=== PATIENT | male | born 1955 | race African-American/Black ===

== ENCOUNTER 2022-08-14 10:25 | Inpatient (IN) | payer OTHER, MEDICAID ==
[2022-08-14 11:42] LABS: #Eosinphils 0.1 10x3/uL (0.0-0.5); #Monocytes 0.3 10x3/uL (0.0-1.1); #Neutrophils 2.4 10x3/uL (1.5-8.4); %Basophils 0.5 % (0.0-2.0); %Eosinophils 2.3 % (0.0-6.0); %Lymphocytes 34.9 % (18.0-47.0); %Monocytes 7.3 % (0.0-10.0); %Neutrophils 54.8 % (40.0-75.0); Hemoglobin 14.4 g/dL (13.5-17.5); Mean Corpuscular HGB CONC 35.5 g/dL (32.0-36.0); Mean Corpuscular Volume 95.8 fl (81.2-95.1); Mean Platelet Volume 11.8 fl (7.4-10.4); Platelet Count 251 10x3/uL (150-450); RBC Distribution Width 12.3 % (11.5-14.5); Red Blood Cell (RBC) Count 4.24 10x6/uL (4.32-5.72); White Blood Cell (WBC) Count 4.4 10x3/uL (3.5-10.5)
[2022-08-14 11:57] LABS: ALT (SGPT) 76 U/L (8-55); AST (SGOT) 72 U/L (5-34); Albumin 4.8 g/dL (3.4-4.8); Alkaline Phosphatase 103 U/L (40-110); Anion Gap 18 mmol/L (10-20); BUN (Urea Nitrogen) 30 mg/dL (8.4-25.7); Bilirubin, Total 0.7 mg/dL (0.2-1.2); Calc. Creatinine Clearance 0 mL/min (70-130); Carbon Dioxide 21 mmol/L (23-31); Chloride 94 mmol/L (98-107); Estimated GFR 32; Globulin 4.1 g/dL (2.4-3.5); Potassium 5.7 mmol/L (3.5-5.1); Protein, Total 8.9 g/dL (5.8-8.1); Sodium 127 mmol/L (136-145)
[2022-08-14 12:09] LABS: Glucose 576 mg/dL (80-115)
[2022-08-14 13:24] LABS: Actual Bicarbonate (HCO3v) 25 mEq/L (22-28); Base Excess -0.5 mEq/L (-2.0 to +3.0); Calcium, Ionized (venous) 1.14 mmol/L (1.16-1.32); Chloride (VBG) 98 mmol/L (98-106); Hemoglobin (Hb) 14.5 g/dL (12.6-17.4); Potassium (VBG) 5.79 mmol/L (3.70-5.30); Puncture Site Other Site; RapidComm Collect By CBN; Sodium 131.3 mmol/L (133-146); pH (venous) 7.36 (7.32-7.43)
[2022-08-14] MEDS ORDERED: Insulin Regular 300 UNITS/3 ML VIAL ONE (13:48)
[2022-08-14] MEDS ORDERED: Guaifenesin DM 100-10/5 ML UDCUP PO PRN (13:59)
[2022-08-14] MEDS ORDERED: Senokot S 8.6-50 MG TAB PO PRN (13:59)
[2022-08-14] MEDS ORDERED: Ondansetron PF 4 MG/2 ML Vial IVP PRN (13:59)
[2022-08-14] MEDS ORDERED: Acetaminophen 325 MG TAB PO PRN (13:59)
[2022-08-14] MEDS ORDERED: Dextrose 50% Abboject 50 ML SYRINGE SLOW IVP PRN (14:04)
[2022-08-14] MEDS ORDERED: Dextrose 5% in Water 1,000 ML IV PRN (14:04)
[2022-08-14] MEDS ORDERED: HumaLOG 300 UNITS/3 ML VIAL SC PRN (14:04)
[2022-08-14] MEDS ORDERED: Sodium Chloride 0.9% 1,000 ML IV SCH (14:30)
[2022-08-14 15:20] LABS: Bilirubin Neg (Negative); Blood, Urine Negative (Negative); Clarity Clear (Clear); Glucose, Urine (Dipstick) >=1000 mg/dL (Negative); Ketone, Urine 5 mg/dL (Negative); Leukocyte Negative (Negative); Nitrite Negative (Negative); Protein, Urine (Dipstick) Negative (Neg-Trace); Urobilinogen Normal mg/dL (Less than 2)
[2022-08-14 16:17] LABS: Anion Gap 20 mmol/L (10-20); BUN (Urea Nitrogen) 29 mg/dL (8.4-25.7); Calc. Creatinine Clearance 0 mL/min (70-130); Carbon Dioxide 21 mmol/L (23-31); Chloride 94 mmol/L (98-107); Estimated GFR 31; Magnesium 2.7 mg/dL (1.6-2.6); Potassium 5.8 mmol/L (3.5-5.1); Sodium 129 mmol/L (136-145)
[2022-08-14 16:31] LABS: Glucose 561 mg/dL (80-115)
[2022-08-14] MEDS ORDERED: INSULIN REGULAR IN 0.9 % NACL 100 UNIT in Sodium Chloride 0.9% 100 ML IVPB SCH (17:45)
[2022-08-14 18:05] LABS: Creatinine, Urine 37.91 mg/dL (63-166); Protein, Urine Random Quant Less than 10 mg/dL (1-14)
[2022-08-14 18:16] LABS: Anion Gap 16 mmol/L (10-20); BUN (Urea Nitrogen) 29 mg/dL (8.4-25.7); Calc. Creatinine Clearance 0 mL/min (70-130); Calcium 9.6 mg/dL (7.8-10.44); Carbon Dioxide 20 mmol/L (23-31); Chloride 98 mmol/L (98-107); Estimated GFR 34; Glucose 515 mg/dL (80-115); Potassium 4.6 mmol/L (3.5-5.1); Sodium 129 mmol/L (136-145)
[2022-08-14 18:51] LABS: SARS-CoV-2 NAA Rapid Test Not Detected (NotDetected)
[2022-08-14 20:04] VITALS: BMI 36.5
[2022-08-14] MEDS ORDERED: Sodium Chloride 0.9% 1,000 ML IV PRN ×6 (20:21→21:30)
[2022-08-14] MEDS ORDERED: D5 1/2 NS w/20 mEq KCL 1,000 ML IV PRN (20:21)
[2022-08-14] MEDS ORDERED: Dextrose 5 %-0.45 % NaCl 1,000 ML IV PRN ×2 (20:21→21:30)
[2022-08-14] MEDS ORDERED: Electrolyte Replacement Protocol IVPB SCH (20:21)
[2022-08-14] MEDS ORDERED: Lantus 1000 UNITS/10 ML VIAL SC SCH (21:00)
[2022-08-14 21:02] LABS: Anion Gap 17 mmol/L (10-20); BUN (Urea Nitrogen) 30 mg/dL (8.4-25.7); Calc. Creatinine Clearance 54 mL/min (70-130); Calcium 9.5 mg/dL (7.8-10.44); Carbon Dioxide 20 mmol/L (23-31); Chloride 100 mmol/L (98-107); Estimated GFR 35; Glucose 421 mg/dL (80-115); Potassium 4.5 mmol/L (3.5-5.1); Sodium 132 mmol/L (136-145)
[2022-08-14] MEDS: Sodium Chloride 0.9% 1,000 ML IV SCH (21:06)
[2022-08-14] MEDS: INSULIN REGULAR IN 0.9 % NACL 100 UNIT in Premix Bag 1 BAG IVPB SCH (21:08)
[2022-08-14] MEDS ORDERED: NS 0.9% w/ 20 MEQ KCL 1,000 ML/1,000 ML BAG IV PRN (21:30)
[2022-08-14] MEDS ORDERED: Insulin Regular 300 UNITS/3 ML VIAL IVP SCH (21:30)
[2022-08-14] MEDS: D5 1/2 NS w/20 mEq KCL 1,000 ML IV PRN (22:03)
[2022-08-14] MEDS: NS 0.9% w/ 20 MEQ KCL 1,000 ML/1,000 ML BAG IV PRN (22:06)
[2022-08-14 22:19] LABS: Sodium, Urine 43 mmol/L (Not Available)
[2022-08-14 23:35] LABS: Anion Gap 17 mmol/L (10-20); BUN (Urea Nitrogen) 28 mg/dL (8.4-25.7); BUN/Creatinine Ratio 15.91; Calc. Creatinine Clearance 62 mL/min (70-130); Calcium 9.2 mg/dL (7.8-10.44); Carbon Dioxide 19 mmol/L (23-31); Chloride 106 mmol/L (98-107); Estimated GFR 42; Glucose 129 mg/dL (80-115); Magnesium 2.1 mg/dL (1.6-2.6); Phosphorus 3.5 mg/dL (2.3-4.7); Sodium 138 mmol/L (136-145)
[2022-08-15] MEDS: NS 0.9% w/ 20 MEQ KCL 1,000 ML/1,000 ML BAG IV PRN (00:05)
[2022-08-15 00:56] LABS: Anion Gap 15 mmol/L (10-20); BUN (Urea Nitrogen) 26 mg/dL (8.4-25.7); Calc. Creatinine Clearance 69 mL/min (70-130); Calcium 8.8 mg/dL (7.8-10.44); Carbon Dioxide 19 mmol/L (23-31); Chloride 108 mmol/L (98-107); Estimated GFR 47; Glucose 99 mg/dL (80-115); Potassium 4.4 mmol/L (3.5-5.1); Sodium 138 mmol/L (136-145)
[2022-08-15] MEDS: D5 1/2 NS w/20 mEq KCL 1,000 ML IV PRN ×2 (02:20→06:40)
[2022-08-15 04:58] LABS: Anion Gap 16 mmol/L (10-20); BUN (Urea Nitrogen) 23 mg/dL (8.4-25.7); Calc. Creatinine Clearance 78 mL/min (70-130); Calcium 8.4 mg/dL (7.8-10.44); Carbon Dioxide 17 mmol/L (23-31); Chloride 108 mmol/L (98-107); Estimated GFR 55; Glucose 235 mg/dL (80-115); Potassium 4.5 mmol/L (3.5-5.1); Sodium 136 mmol/L (136-145)
[2022-08-15 05:01] LABS: #Eosinphils 0.1 10x3/uL (0.0-0.5); #Monocytes 0.3 10x3/uL (0.0-1.1); %Basophils 0.7 % (0.0-2.0); %Eosinophils 2.4 % (0.0-6.0); %Lymphocytes 45.9 % (18.0-47.0); %Monocytes 7.3 % (0.0-10.0); %Neutrophils 43.5 % (40.0-75.0); Hemoglobin 11.5 g/dL (13.5-17.5); Mean Corpuscular HGB CONC 34.6 g/dL (32.0-36.0); Mean Corpuscular Hemoglobin 33.5 pg (27.0-33.0); Mean Corpuscular Volume 96.8 fl (81.2-95.1); Mean Platelet Volume 11.3 fl (7.4-10.4); Platelet Count 187 10x3/uL (150-450); RBC Distribution Width 12.3 % (11.5-14.5); Red Blood Cell (RBC) Count 3.43 10x6/uL (4.32-5.72); White Blood Cell (WBC) Count 4.5 10x3/uL (3.5-10.5)
[2022-08-15] MEDS: Sodium Chloride 0.9% 1,000 ML IV SCH (05:35)
[2022-08-15] MEDS: Dextrose 5%-Lactated Ringers 1,000 ML IV SCH ×2 (08:29→19:54)
[2022-08-15] MEDS ORDERED: Famotidine 20 MG TAB PO SCH (09:00)
[2022-08-15] MEDS ORDERED: Enoxaparin Sodium 30 MG/0.3 ML SYRINGE SC SCH (09:00)
[2022-08-15 09:26] LABS: Anion Gap 12 mmol/L (10-20); BUN (Urea Nitrogen) 18 mg/dL (8.4-25.7); Calc. Creatinine Clearance 84 mL/min (70-130); Calcium 8.7 mg/dL (7.8-10.44); Carbon Dioxide 20 mmol/L (23-31); Chloride 108 mmol/L (98-107); Estimated GFR 60; Glucose 203 mg/dL (80-115); Potassium 4.2 mmol/L (3.5-5.1); Sodium 136 mmol/L (136-145)
[2022-08-15] MEDS: Amlodipine 5 MG TAB PO SCH ×2 (09:48→20:33)
[2022-08-15] MEDS: Carvedilol 6.25 MG TAB PO SCH ×2 (09:49→20:32)
[2022-08-15] MEDS: Gabapentin 100 MG CAP PO SCH ×2 (10:05→20:31)
[2022-08-15] MEDS: INSULIN REGULAR IN 0.9 % NACL 100 UNIT in Premix Bag 1 BAG IVPB SCH (10:05)
[2022-08-15] MEDS ORDERED: Dextrose 5% in Water 1,000 ML IV PRN (10:39)
[2022-08-15] MEDS ORDERED: Dextrose 50% Abboject 50 ML SYRINGE SLOW IVP PRN (10:39)
[2022-08-15] MEDS: HumaLOG 300 UNITS/3 ML VIAL SC PRN ×3 (11:15→20:38)
[2022-08-15 13:02] LABS: Hemoglobin A1c Greater than 14.0 % (4.0-6.0)
[2022-08-15] MEDS: Mirtazapine 15 MG TAB PO SCH (20:31)
[2022-08-15] MEDS: Famotidine 20 MG TAB PO SCH (20:32)
[2022-08-15] MEDS: Lantus 1000 UNITS/10 ML VIAL SC SCH (20:33)
[2022-08-15] MEDS: Atorvastatin Calcium 20 MG TAB PO SCH (20:33)
[2022-08-16 08:39] LABS: Hemoglobin 12.9 g/dL (13.5-17.5); Mean Corpuscular Hemoglobin 33.3 pg (27.0-33.0); Mean Corpuscular Volume 97.9 fl (81.2-95.1); Mean Platelet Volume 11.3 fl (7.4-10.4); Platelet Count 218 10x3/uL (150-450); RBC Distribution Width 12.5 % (11.5-14.5); Red Blood Cell (RBC) Count 3.87 10x6/uL (4.32-5.72); White Blood Cell (WBC) Count 3.7 10x3/uL (3.5-10.5)
[2022-08-16] MEDS: HumaLOG 300 UNITS/3 ML VIAL SC PRN ×4 (08:45→20:22)
[2022-08-16 08:54] LABS: Albumin 4.1 g/dL (3.4-4.8); Anion Gap 16 mmol/L (10-20); BUN (Urea Nitrogen) 13 mg/dL (8.4-25.7); Calc. Creatinine Clearance 84 mL/min (70-130); Calcium 9.6 mg/dL (7.8-10.44); Carbon Dioxide 18 mmol/L (23-31); Chloride 104 mmol/L (98-107); Estimated GFR 60; Glucose 319 mg/dL (80-115); Phosphorus 3.2 mg/dL (2.3-4.7); Potassium 4.9 mmol/L (3.5-5.1); Sodium 133 mmol/L (136-145)
[2022-08-16] MEDS ORDERED: Magnesium 2 GM/50 ML(in water) 2 GM in Premix Bag 1 BAG IVPB SCH (09:00)
[2022-08-16] MEDS: Carvedilol 6.25 MG TAB PO SCH ×2 (09:43→20:19)
[2022-08-16] MEDS: Gabapentin 100 MG CAP PO SCH ×2 (09:43→20:20)
[2022-08-16] MEDS: Amlodipine 5 MG TAB PO SCH ×2 (09:43→20:19)
[2022-08-16] MEDS: Famotidine 20 MG TAB PO SCH ×2 (09:43→20:19)
[2022-08-16] MEDS: Rivaroxaban 10 MG TAB PO SCH (10:21)
[2022-08-16] MEDS: Lactated Ringer's 1,000 ML IV SCH ×2 (10:23→23:55)
[2022-08-16] MEDS ORDERED: Lantus 1000 UNITS/10 ML VIAL SC SCH (13:00)
[2022-08-16] MEDS: Sodium Bicarbonate Tab 325 MG TAB PO SCH ×2 (15:29→22:40)
[2022-08-16] MEDS: Atorvastatin Calcium 20 MG TAB PO SCH (20:21)
[2022-08-16] MEDS: Lantus 1000 UNITS/10 ML VIAL SC SCH (20:21)
[2022-08-16] MEDS: Mirtazapine 15 MG TAB PO SCH (20:21)
[2022-08-17 04:32] LABS: Anion Gap 15 mmol/L (10-20); BUN (Urea Nitrogen) 15 mg/dL (8.4-25.7); Calc. Creatinine Clearance 83 mL/min (70-130); Calcium 9.5 mg/dL (7.8-10.44); Carbon Dioxide 21 mmol/L (23-31); Chloride 104 mmol/L (98-107); Estimated GFR 59; Glucose 240 mg/dL (80-115); Magnesium 2.1 mg/dL (1.6-2.6); Potassium 4.1 mmol/L (3.5-5.1); Sodium 136 mmol/L (136-145)
[2022-08-17 04:39] LABS: Hemoglobin 12.7 g/dL (13.5-17.5); Mean Corpuscular HGB CONC 34.7 g/dL (32.0-36.0); Mean Corpuscular Hemoglobin 33.4 pg (27.0-33.0); Mean Corpuscular Volume 96.3 fl (81.2-95.1); Platelet Count 217 10x3/uL (150-450); RBC Distribution Width 12.5 % (11.5-14.5); White Blood Cell (WBC) Count 4.8 10x3/uL (3.5-10.5)
[2022-08-17] MEDS: Lactated Ringer's 1,000 ML IV SCH (06:30)
[2022-08-17 08:26] VITALS: TEMP 97.2
[2022-08-17] MEDS ORDERED: Lantus 1000 UNITS/10 ML VIAL SC SCH ×3 (09:00)
[2022-08-17] MEDS: Sodium Bicarbonate Tab 325 MG TAB PO SCH (11:47)
[2022-08-17] MEDS: Rivaroxaban 10 MG TAB PO SCH (11:48)
[2022-08-17] MEDS: Amlodipine 5 MG TAB PO SCH (11:48)
[2022-08-17] MEDS: Carvedilol 6.25 MG TAB PO SCH (11:48)
[2022-08-17] MEDS: Gabapentin 100 MG CAP PO SCH (11:48)
[2022-08-17] MEDS: Famotidine 20 MG TAB PO SCH (11:48)
[2022-08-17] MEDS: HumaLOG 300 UNITS/3 ML VIAL SC PRN (12:03)
[2022-08-17 12:45] VITALS: BP 133/96
== END 2022-08-17 15:55 | disposition home or self-care (01) | DRG 638 ==
LOC: CSHERS 10:25 → CSHERHOLD 15:42 → CSHICU 19:17 → CSHTELE 08-17 07:58
PROVIDERS: ADMIT Hospitalist; ATTEND Family Medicine
DX: E11.10 Type 2 diabetes mellitus with ketoacidosis without coma (principal); E87.1 Hypo-osmolality and hyponatremia; N17.9 Acute kidney failure, unspecified; E78.5 Hyperlipidemia, unspecified; I25.10 Atherosclerotic heart disease of native coronary artery without angina pectoris; N40.0 Benign prostatic hyperplasia without lower urinary tract symptoms; F17.210 Nicotine dependence, cigarettes, uncomplicated; E87.5 Hyperkalemia; E11.22 Type 2 diabetes mellitus with diabetic chronic kidney disease; N18.30 Chronic kidney disease, stage 3 unspecified; G89.29 Other chronic pain; K21.9 Gastro-esophageal reflux disease without esophagitis; M10.9 Gout, unspecified; F31.9 Bipolar disorder, unspecified; F41.9 Anxiety disorder, unspecified; I12.9 Hypertensive chronic kidney disease with stage 1 through stage 4 chronic kidney disease, or unspecified chronic kidney disease; Z20.822 Contact with and (suspected) exposure to COVID-19; Z79.82 Long term (current) use of aspirin; Z79.51 Long term (current) use of inhaled steroids; I25.2 Old myocardial infarction; Z88.5 Allergy status to narcotic agent; Z79.899 Other long term (current) drug therapy
CPT/HCPCS: 36415; 36416; 80048; 80053; 80069; 81003; 82010; 82550; 82570; 82805; 83036; 83735; 84156; 84300; 85025; 85027; 93005; 94760; 99285; J1650; J1815; J3475; J3480; J7050; J7120; U0002